=== PATIENT | male | born 1970 | race Caucasian/White ===

== ENCOUNTER 2020-07-12 14:43 | Emergency (ER) | payer MEDICARE | END 2020-07-12 15:18 | disposition home or self-care (01) | LOC: MADERS 14:43 | DX: S50.12XA Contusion of left forearm, initial encounter (principal); E78.5 Hyperlipidemia, unspecified; E78.00 Pure hypercholesterolemia, unspecified; I10 Essential (primary) hypertension; G43.909 Migraine, unspecified, not intractable, without status migrainosus; I25.2 Old myocardial infarction; Z87.891 Personal history of nicotine dependence; Z79.01 Long term (current) use of anticoagulants; Z79.82 Long term (current) use of aspirin; Z79.899 Other long term (current) drug therapy; X58.XXXA Exposure to other specified factors, initial encounter | CPT/HCPCS: 99283 ==

== ENCOUNTER 2020-07-17 18:43 | Outpatient (CLI) | payer MEDICARE ==
--- NOTE | 2020-07-17 20:08 | RAD ---
RIGHT HIP RADIOGRAPHS TWO VIEWS: 07/17/20 PROVIDED CLINICAL HISTORY: Right hip pain. FINDINGS: No evidence for fracture or other acute osseous abnormality. Alignment appears anatomic. Right hip elvie int space appears preserved. Postoperative changes are seen involving the lower lumbar spine. IMPRESSION: No evidence for an acute osseous abnormality or significant arthropathy involving the right hip. POS: REYNA
--- NOTE | 2020-07-17 20:33 | RAD ---
LEFT HIP RADIOGRAPHS TWO VIEWS: 07/17/20 PROVIDED CLINICAL HISTORY: Left hip pain. FINDINGS: No evidence for fracture or other acute osseous abnormality. Alignment appears anatomic. Left hip tierney nt space appears preserved. Postoperative changes are seen involving the lower lumbar spine. IMPRESSION: No evidence for an acute osseous abnormality or significant arthropathy involving the left hip. POS: REYNA
== END 2020-07-17 18:44 | disposition home or self-care (01) ==
LOC: MADRAD 18:43
PROVIDERS: ATTEND Registered Nurse
DX: M25.551 Pain in right hip (principal); M25.552 Pain in left hip

== ENCOUNTER 2021-10-20 12:17 | Emergency (ER) | payer MEDICARE ==
[2021-10-20] MEDS ORDERED: Acetaminophen 500 MG TAB ONE (13:45)
[2021-10-20] MEDS ORDERED: Ondansetron ODT 4 MG TAB ONE (13:45)
[2021-10-20 13:53] LABS: #Eosinphils 0.1 thou/uL (0.0-0.7); #Lymphocytes 0.6 thou/uL (1.20-3.40); #Monocytes 0.4 thou/uL (0.11-0.59); #Neutrophils 9.8 thou/uL (1.40-6.50); %Basophils 0.3 % (0.0-1.0); %Eosinophils 1.1 % (0.0-10.0); %Lymphocytes 5.6 % (21.0-51.0); %Monocytes 3.2 % (0.0-10.0); %Neutrophils 89.8 % (42.0-75.0); Hemoglobin 14.5 g/dL (14.0-18.0); Mean Corpuscular HGB CONC 31.2 g/dL (32.0-36.0); Mean Corpuscular Hemoglobin 29.2 pg (27.0-31.0); Mean Corpuscular Volume 93.8 fL (78.0-98.0); Mean Platelet Volume 5.8 fL (7.4-10.4); Platelet Count 279 thou/uL (130-400); RBC Distribution Width 11.9 % (11.5-14.5); Red Blood Cell (RBC) Count 4.95 mill/uL (4.70-6.10); White Blood Cell (WBC) Count 10.9 thou/uL (4.8-10.8)
[2021-10-20 14:14] LABS: ALT (SGPT) 8 U/L (8-55); AST (SGOT) 14 U/L (5-34); Alkaline Phosphatase 65 U/L (40-110); Anion Gap 11 mmol/L (10-20); BUN (Urea Nitrogen) 18 mg/dL (8.9-20.6); Bilirubin, Total 1.1 mg/dL (0.2-1.2); CK (CPK) 66 U/L (30-200); Calc. Creatinine Clearance 0 mL/min (70-130); Calcium 9.4 mg/dL (7.8-10.44); Carbon Dioxide 25 mmol/L (22-29); Chloride 107 mmol/L (98-107); Globulin 3.5 g/dL (2.4-3.5); Glucose 101 mg/dL (70-105); Potassium 3.6 mmol/L (3.5-5.1); Protein, Total 7.5 g/dL (6.0-8.3); Sodium 139 mmol/L (136-145)
[2021-10-20 14:30] LABS: SARS-CoV-2 NAA Rapid Test Not Detected (NotDetected)
== END 2021-10-20 16:05 | disposition home or self-care (01) ==
LOC: MADERS 12:17
DX: J44.1 Chronic obstructive pulmonary disease with (acute) exacerbation (principal); I25.10 Atherosclerotic heart disease of native coronary artery without angina pectoris; R11.2 Nausea with vomiting, unspecified; Z20.822 Contact with and (suspected) exposure to COVID-19; I50.9 Heart failure, unspecified; E78.5 Hyperlipidemia, unspecified; E78.00 Pure hypercholesterolemia, unspecified; Z79.82 Long term (current) use of aspirin; Z79.899 Other long term (current) drug therapy; Z87.891 Personal history of nicotine dependence
CPT/HCPCS: 0240U; 36415; 71045; 80053; 82550; 83605; 84484; 85025; 85379; 86140; 87040; 93005; Q0162

== ENCOUNTER 2023-02-09 10:26 | Emergency (ER) | payer MEDICARE ==
[2023-02-09] MEDS ORDERED: Nitroglycerin 0.4 MG TAB 1 EACH ONE (11:16)
[2023-02-09] MEDS ORDERED: Aspirin Chewable 81 MG TAB ONE (11:16)
[2023-02-09 11:23] LABS: #Basophils 0.1 thou/uL (0.0-0.2); #Eosinphils 0.1 thou/uL (0.0-0.7); #Monocytes 0.5 thou/uL (0.11-0.59); #Neutrophils 5.3 thou/uL (1.40-6.50); %Basophils 0.8 % (0.0-1.0); %Eosinophils 1.3 % (0.0-10.0); %Lymphocytes 14.1 % (21.0-51.0); %Monocytes 6.8 % (0.0-10.0); %Neutrophils 77.1 % (42.0-75.0); Hemoglobin 15.4 g/dL (14.0-18.0); Mean Corpuscular HGB CONC 30.8 g/dL (32.0-36.0); Mean Corpuscular Hemoglobin 27.5 pg (27.0-31.0); Mean Corpuscular Volume 89.4 fl (78.0-98.0); Mean Platelet Volume 8.7 fL (7.4-10.4); Platelet Count 387 10x3/uL (130-400); RBC Distribution Width 15.1 % (11.5-14.5); Red Blood Cell (RBC) Count 5.61 mill/uL (4.70-6.10); White Blood Cell (WBC) Count 6.9 10x3/uL (4.8-10.8)
[2023-02-09 11:32] LABS: ALT (SGPT) 13 U/L (8-55); AST (SGOT) 20 U/L (5-34); Albumin 4.9 g/dL (3.5-5.0); Alkaline Phosphatase 65 U/L (40-110); Anion Gap 19 mmol/L (10-20); BUN (Urea Nitrogen) 13 mg/dL (8.9-20.6); Bilirubin, Total 0.9 mg/dL (0.2-1.2); Calc. Creatinine Clearance 0 mL/min (70-130); Calcium 10.1 mg/dL (7.8-10.44); Carbon Dioxide 22 mmol/L (22-29); Chloride 104 mmol/L (98-107); Estimated GFR 80; Globulin 3.6 g/dL (2.4-3.5); Glucose 105 mg/dL (70-105); Protein, Total 8.5 g/dL (6.0-8.3); Sodium 141 mmol/L (136-145)
[2023-02-09 11:47] LABS: Bilirubin Negative (Negative); Blood, Urine Negative (Negative); Clarity Clear (Clear); Glucose, Urine (Dipstick) >=1000 mg/dL (Negative); Ketone, Urine Negative (Negative); Leukocyte Negative (Negative); Nitrite Negative (Negative); Protein, Urine (Dipstick) Negative (Neg-Trace); Urobilinogen 0.2 mg/dL (Less than 2); pH, Urine 5.5 (5.0-9.0)
[2023-02-09] MEDS ORDERED: Acetaminophen 500 MG TAB ONE (13:17)
== END 2023-02-09 14:25 | disposition short-term general hospital (02) ==
LOC: MADERS 10:26
DX: R07.2 Precordial pain (principal); R55 Syncope and collapse; E78.00 Pure hypercholesterolemia, unspecified; I25.2 Old myocardial infarction; F17.220 Nicotine dependence, chewing tobacco, uncomplicated; Z95.5 Presence of coronary angioplasty implant and graft; Z79.01 Long term (current) use of anticoagulants; Z79.899 Other long term (current) drug therapy
CPT/HCPCS: 36415; 70450; 71045; 80053; 81003; 83880; 84484; 85025; 85379; 93005; 94760

== ENCOUNTER 2023-03-14 14:53 | Emergency (ER) | payer MEDICARE ==
[2023-03-14] MEDS ORDERED: Aspirin Chewable 81 MG TAB ONE (15:06)
[2023-03-14] MEDS ORDERED: Nitroglycerin 0.4 MG TAB 1 EACH ONE ×2 (15:06→15:13)
[2023-03-14] MEDS ORDERED: Ondansetron ODT 4 MG TAB ONE (15:07)
[2023-03-14] MEDS ORDERED: Nitroglycerin 50 MG/250 ML BOT ONE (15:08)
[2023-03-14] MEDS ORDERED: Ondansetron PF 4 MG/2 ML Vial ONE ×2 (15:08)
[2023-03-14 15:17] LABS: #Eosinphils 0.1 thou/uL (0.0-0.7); #Lymphocytes 1.7 thou/uL (1.20-3.40); #Monocytes 0.6 thou/uL (0.11-0.59); #Neutrophils 5.6 thou/uL (1.40-6.50); %Basophils 0.6 % (0.0-1.0); %Eosinophils 0.9 % (0.0-10.0); %Lymphocytes 21.2 % (21.0-51.0); %Monocytes 7.8 % (0.0-10.0); %Neutrophils 69.6 % (42.0-75.0); Hemoglobin 13.7 g/dL (14.0-18.0); Mean Corpuscular HGB CONC 31.6 g/dL (32.0-36.0); Mean Corpuscular Hemoglobin 27.7 pg (27.0-31.0); Mean Corpuscular Volume 87.7 fl (78.0-98.0); Mean Platelet Volume 7.2 fL (7.4-10.4); Platelet Count 353 10x3/uL (130-400); RBC Distribution Width 14.7 % (11.5-14.5); Red Blood Cell (RBC) Count 4.95 mill/uL (4.70-6.10); White Blood Cell (WBC) Count 8.1 10x3/uL (4.8-10.8)
[2023-03-14] MEDS ORDERED: Nitroglycerin 50 MG/250 ML BOT 0 ML ONE (15:17)
[2023-03-14 15:30] LABS: INR-International Normal Ratio 0.8; Prothrombin Time 11.6 sec (12.0-14.7)
[2023-03-14 15:31] LABS: ALT (SGPT) 15 U/L (8-55); AST (SGOT) 20 U/L (5-34); Albumin 4.7 g/dL (3.5-5.0); Alkaline Phosphatase 56 U/L (40-110); Anion Gap 21 mmol/L (10-20); BUN (Urea Nitrogen) 16 mg/dL (8.4-25.7); Bilirubin, Total 0.4 mg/dL (0.2-1.2); Calc. Creatinine Clearance 0 mL/min (70-130); Calcium 10.3 mg/dL (7.8-10.44); Carbon Dioxide 20 mmol/L (22-29); Chloride 105 mmol/L (98-107); Estimated GFR 87; Globulin 3.6 g/dL (2.4-3.5); Glucose 111 mg/dL (70-105); PTT 26.4 sec (22.9-36.1); Potassium 3.5 mmol/L (3.5-5.1); Protein, Total 8.3 g/dL (6.0-8.3); Sodium 142 mmol/L (136-145)
[2023-03-14 15:33] LABS: D-Dimer Test 0.74 *mcg/mL (0.27-0.43)
[2023-03-14] MEDS ORDERED: Morphine 4 MG/ML VIAL ONE (15:33)
[2023-03-14] MEDS ORDERED: Heparin 10,000 UNITS/ 10 ML VIAL ONE ×2 (15:37→17:54)
[2023-03-14] MEDS ORDERED: Heparin 25,000 units/D5W 500 ML ONE (15:38)
[2023-03-14] MEDS ORDERED: fentaNYL 50 mcg/mL 1 mL Vial ONE (15:42)
[2023-03-14] MEDS ORDERED: Midazolam HCl 2 mg/2 ml Vial ONE (15:43)
[2023-03-14] MEDS ORDERED: Promethazine HCl 25 MG/ML VIAL ONE (17:11)
[2023-03-14] MEDS ORDERED: PHENYLEPHRINE-NS 100 MCG/ML 10 ML SYRINGE ONE (17:14)
[2023-03-14] MEDS ORDERED: Aggrastat 12.5 MG/250 ML 250 ML ONE (17:51)
== END 2023-03-14 15:55 | disposition short-term general hospital (02) ==
LOC: MADERS 14:53
DX: I21.3 ST elevation (STEMI) myocardial infarction of unspecified site (principal); E78.00 Pure hypercholesterolemia, unspecified; F17.220 Nicotine dependence, chewing tobacco, uncomplicated
CPT/HCPCS: 71045; 80053; 83880; 84484; 85025; 85379; 85610; 85730; 93005; 96365; 96375; J1644; J2250; J2270; J2405; J2550; J3010; J3246; Q0162